=== PATIENT | female | born 1995 | race African-American/Black ===

== ENCOUNTER 2019-01-23 11:44 | Emergency (ER) | payer OTHER ==
[2019-01-23] MEDS ORDERED: IBUPROFEN 600 MG TABLET (FP) PO ONE ×2 (11:52→12:06)
[2019-01-23 11:54] VITALS: BP 115/58; PULSE 70; TEMP 98.5; BMI 26.6
--- NOTE | 2019-01-23 11:58 | PDOC ---
History of Present Illness - General Chief Complaint: Injury Stated Complaint: LEFT ANKLE INJURY AT WORK Time Seen by Provider: 01/23/19 11:46 - History of Present Illness Initial Comments: 01/23/19 11:55 23 F with no PMH presents to ED with L ankle pain x 5 days. 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 Does not recall which way it twisted. Did not notice any pain initially but the next day noticed it was painful to walk on. Pain has persisted since then. Is only noticeable with ambulation. Denies any swelling. Denies any other injury. Past History - Past Medical History Allergies/Adverse Reactions: Allergies Allergy/AdvReac Type Severity Reaction Status Date / Time No Known Allergies Allergy Verified 01/23/19 11:45 Home Medications: Ambulatory Orders NK [No Known Home Medication] 01/23/19 COPD: No Thyroid Disease: No - Suicide/Smoking/Psychosocial Hx Smoking Status: No Smoking History: Never smoked Have you smoked in the past 12 months: No Number of Cigarettes Smoked Daily: 0 Information on smoking cessation initiated: No Hx Alcohol Use: No Drug/Substance Use Hx: No Substance Use Type: None Review of Systems - Review of Systems Comments:: 01/23/19 11:56 GENERAL/CONSTITUTIONAL: No fever or chills. No weakness. HEAD, EYES, EARS, NOSE AND THROAT: No change in vision. No ear pain or discharge. No sore throat. CARDIOVASCULAR: No chest pain, no shortness of breath, no loss of consciousness RESPIRATORY: No cough, wheezing, or hemoptysis. GASTROINTESTINAL: No nausea, vomiting, diarrhea or constipation. GENITOURINARY: No dysuria, frequency, or change in urination. MUSCULOSKELETAL: + L ankle pain, No neck or back pain. SKIN: No rash NEUROLOGIC: No vertigo, no change in strength/sensation. ENDOCRINE: No increased thirst. No abnormal weight change. HEMATOLOGIC/LYMPHATIC: No anemia, easy bleeding, or history of blood clots. ALLERGIC/IMMUNOLOGIC: No hives or skin allergy. *Physical Exam - Vital Signs Last Vital Signs Temp Pulse Resp BP Pulse Ox 98.5 F 70 20 115/58 L 100 01/23/19 11:45 01/23/19 11:45 01/23/19 11:45 01/23/19 11:45 01/23/19 11:45 - Physical Exam Comments: 01/23/19 11:57 GENERAL: Awake, alert, and fully oriented, in no acute distress. HEAD: No signs of trauma EYES: PERRLA, EOMI, sclera anicteric, conjunctiva clear ENT: Auricles normal inspection, hearing grossly normal, nares patent, oropharynx clear without exudates. Moist mucosa NECK: Nontender, no stepoffs, Normal ROM, supple, no lymphadenopathy, JVD, or masses LUNGS: Breath sounds equal, clear to auscultation bilaterally. No wheezes, and no crackles HEART: Regular rate and rhythm, normal S1 and S2, no murmurs, rubs or gallops ABDOMEN: Soft, nontender, normoactive bowel sounds. No guarding, no rebound. No masses EXTREMITIES: + mild TTP above L lateral malleolus, Normal range of motion, no edema. No clubbing or cyanosis. No cords, erythema, or tenderness NEUROLOGICAL: Cranial nerves II through XII intact. 5/5 strength and sensation in all extremities, Normal speech, normal gait, normal cerebellar function SKIN: Warm, Dry, normal turgor, no rashes or lesions noted. Moderate Sedation - Procedure Monitoring Vital Signs: Procedure Monitoring Vital Signs Temperature 98.5 F 01/23/19 11:45 Pulse Rate 70 01/23/19 11:45 Respiratory Rate 20 01/23/19 11:45 Blood Pressure 115/58 L 01/23/19 11:45 O2 Sat by Pulse Oximetry (%) 100 01/23/19 11:45 ED Treatment Course - RADIOLOGY Radiology Studies Ordered: Category Date Time Status ANKLE-LEFT [RAD] Stat Radiology 01/23/19 11:51 Ordered Medical Decision Making - Medical Decision Making 01/23/19 11:57 23 F with L ankle pain after twisting in 5 days ago. Likely sprain. Pt able to bear weight and walk in ED without problem. - XR L ankle - Motrin 01/23/19 12:43 XR negative on my read Will DC with ortho f/u Pt is well appearing, with normal vitals. Clinically stable for DC at this time. I discussed the physical exam findings, ancillary test results and final diagnoses with the patient. I answered all of the patient's questions. The patient was satisfied with the care received and felt comfortable with the discharge plan and treatment plan. The patient agrees to follow up with the primary care physician within 24-72 hours. *DC/Admit/Observation/Transfer Diagnosis at time of Disposition: Ankle sprain - Discharge Dispostion Disposition: HOME - Referrals Referrals: Alfonso Huang MD [Staff Physician] - - Patient Instructions Printed Discharge Instructions: DI for Ankle Sprain Additional Instructions: You likely have a sprained ankle. Avoid bearing weight or doing any strenuous activity until the pain has subsided completely. Take ibuprofen 600mg every 6 hours as needed for pain. If you continue to have pain after 3 days, make an appointment with an orthopedic surgeon for further evaluation. Call the number provided to make an appointment. You may need a MRI to evaluate for ligament or tendon injury. If you experience worsening pain, swelling, or any other concerning symptoms, return to the ER immediately. - Post Discharge Activity Forms/Work/School Notes: Back to Work - Attestations Physician Attestion: 01/23/19 12:42 I, Dr. Kana Richardson MD, attest that this document has been prepared under my direction and personally reviewed by me in its entirety. I further attest, that it accurately reflects all work, treatment, procedures and medical decision -making performed by me.
== END 2019-01-23 13:09 | disposition home or self-care (01) ==
LOC: FER 11:44
DX: S93.402A Sprain of unspecified ligament of left ankle, initial encounter (principal); X58.XXXA Exposure to other specified factors, initial encounter; Y93.89 Activity, other specified; Y92.89 Other specified places as the place of occurrence of the external cause
CPT/HCPCS: 73610-TC-LT-FY; 84703; 99282-25